=== PATIENT | female | born 1975 | race Caucasian/White ===

== ENCOUNTER → 2021-03-10 | Outpatient (CLI) | payer BC ==
--- NOTE | 2021-03-10 15:56 | RAD ---
EXAM: Maxillofacial bone CT without contrast. HISTORY: Sinusitis. TECHNIQUE: Computed tomographic images of the maxillofacial bones were obtained without contrast. *One or more of the following individualized dose reduction techniques were utilized for this examina tion: 1. Automated exposure control. 2. Adjustment of the mA and/or kV according to patient size. 3. Use of iterative reconstruction technique. COMPARISON: None. FINDINGS: There is no sinus opacification or air-fluid level. There is mild rightward nasal septal de viation. There are bilateral phill bullosa. The ostiomeatal units are patent. There is a bony defect within the medial right maxillary sinus, developmental or due to prior antrostomy/uncinectomy surger y. The temporomandibular joints are intact. The mastoid air cells are clear. The orbits are unremarka ble. The visualized portions of the brain and calvarium are unremarkable. IMPRESSION: No evidence of acute or chronic sinusitis. Electronically signed by: Raven Villalta MD (03/10/2021 3:54 PM) [id number]
== END ==
LOC: CT 15:32
PROVIDERS: ATTEND Specialist
DX: J01.10 Acute frontal sinusitis, unspecified (principal)
CPT/HCPCS: 70486

== ENCOUNTER → 2021-11-16 | Day surgery (SDC) | payer BC ==
[~2021-11-16] MED LIST: 0.9 % SODIUM CHLORIDE 10 ML VIAL. ONE; BUPR300T92 PO; DEXAMETHASONE SOD PHOS 10 MG/ML VIAL. ONE; ESCITALOPRAM OX20 MG PO; GABA-586 PO; IOHEXOL 300 MG/ML 50 ML VIAL. ONE; LEVO100T5 PO; LIDOCAINE 1% PF 30 ML VIAL. ONE
[2021-11-16 16:15] VITALS: BP 155/89
== END | disposition home or self-care (01) ==
LOC: SURG 15:12
PROVIDERS: ATTEND Anesthesiology
DX: M54.12 Radiculopathy, cervical region (principal); F32.9 Major depressive disorder, single episode, unspecified; E03.9 Hypothyroidism, unspecified; Z98.890 Other specified postprocedural states; M50.30 Other cervical disc degeneration, unspecified cervical region; M79.10 Myalgia, unspecified site; Z79.899 Other long term (current) drug therapy
CPT/HCPCS: 62321; A4209; A4657; A4930; J1100; Q9967